=== PATIENT | female | born 1935 | race Caucasian/White ===

== ENCOUNTER 2017-08-26 16:36 | Inpatient (IN) | payer OTHER, MEDICARE ==
[~2017-08-26] VITALS: Ht 157.5 cm; Wt 70.1 kg
--- NOTE | 2017-08-26 16:50 | ED EYE COMPLAINT ---
History of Present Illness General Chief Complaint: Eye Problems Stated Complaint: "TROUBLE SEEING OUT OF LEFT EYE" Source: patient, family Exam Limitations: no limitations Vital Signs & Intake/Output Vital Signs & Intake/Output Vital Signs Date Time Temp Pulse Resp B/P B/P Pulse O2 O2 Flow FiO2 Mean Ox Delivery Rate 08/27 1419 98.2 72 18 136/64 95 Room Air 08/27 0841 74 134/68 08/27 0655 97.7 74 20 136/66 96 Room Air 08/27 0224 98.1 72 18 132/60 95 Room Air 08/27 0211 98.0 74 20 132/70 96 Room Air 08/27 0027 72 20 152/70 97 Room Air ED Intake and Output 08/27 0000 08/26 1200 Intake Total Output Total Balance Patient 150 lb Weight Weight Reported by Patient Measurement Method Allergies Coded Allergies: bee venom protein (honey bee) (Intermediate, SWELLING 08/26/17) Triage Nurses Notes Reviewed? yes Onset: Gradual Duration: minute(s): Timing: single episode today Injury Environment: home Severity: moderate Left Eye Associated Symptoms: blurred vision, decreased vision HPI: 82yo female with hx of HTN, hyperlipidemia presents to ED complaining of visual changes in left eye. Patient states that prior to arrival around 430PM she was cleaning her bathroom when she had visual changes in the left eye. She states vision in left eye became blurry and she lost part of her vision. She states she tried to read a word and felt as though she could see the beginning of the word however not the second half. When she closed her eyes she saw a bright light in the left eye. These visual symptoms were associated with lightheadedness. Patient has no history of similar symptoms in the past. Patient reports total duration of symptoms approximately 15 minutes. 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 Joseph at [place] [facility]. Patient's daughter called the patient's director electrical engineering who recommended she be seen and evaluated in the emergency department for TIA rule out. The patient denies headache, head trauma, chest pain, dyspnea, abdominal pain, syncope. (Priscilla DONALDSON,Pat Tello) Reconcile Medications Atorvastatin Calcium (Lipitor) 40 MG TABLET 1 TAB PO DAILY CHOL (Reported) Dorzolamide HCl/Timolol Maleat (Dorzolamide-Timolol Eye Drops) 22.3 MG-6.8 MG/ML DROPS 1 GTT OPH BID GLAUCOMA (Reported) Prednisolone Acetate 1 % DROPS.SUSP 1 GTT OPH 4 TIMES/DAY cataracts (Reported ) Valsartan (Diovan) 40 MG TABLET 1 TAB PO DAILY HTN (Reported) (Mary VELAZCO,Remigio Martinez) Past History Travel History Traveled to [place] past 21 day No Medical History Any Pertinent Medical History? see below for history Cardiovascular: hypertension, hyperlipidemia Surgical History Surgical History: cataract removal, corneal transplant, left eye Psychosocial History What is your primary language Telugu Family History Hx Contributory? No (Pat Matthew) Review of Systems Review of Systems Constitutional: Reports: no symptoms. Eyes: Reports: see HPI. Ear: Reports: no symptoms. Nose: Reports: no symptoms. Mouth: Reports: no symptoms. Throat: Reports: no symptoms. Respiratory: Reports: no symptoms. Cardiovascular: Reports: no symptoms. GI: Reports: no symptoms. Genitourinary: Reports: no symptoms. Musculoskeletal: Reports: no symptoms. Skin: Reports: no symptoms. Neurological/Psychological: Reports: see HPI. Hematologic/Endocrine: Reports: no symptoms. Immunologic/Allergic: Reports: no symptoms. All Other Systems: Reviewed and Negative (Pat Matthew) Physical Exam General Appearance: well developed/nourished, no apparent distress, alert, awake General Inspection: normal inspection Eyelid: normal inspection Conjunctiva/Sclera: normal inspection Cornea: normal inspection EOM: intact Pupil: irregular pupillary shape, surgical pupil Anterior Chamber: normal inspection General Inspection: normal inspection Eyelid: normal inspection Conjunctiva/Sclera: normal inspection Cornea: normal inspection EOM: intact Pupil: normal accommodation, normal pupil, PERRL Anterior Chamber: normal inspection Physical Exam Head: atraumatic, normal appearance Nose: normal inspection Mouth/Throat: normal mouth inspection, pharynx normal Neck: normal inspection, supple, full range of motion Cardiovascular/Respiratory: normal breath sounds, normal peripheral pulses, regular rate/rhythm, no respiratory distress Neurologic/Psych: awake, alert, oriented x 3, cloth sponger II-XII nml as tested Skin: intact, normal color, warm/dry (Pat Matthew) Progress Differential Diagnosis: detached retina, retinal art./v. occlusion, TIA, amarosis fuguax, macular degeneration Plan of Care: Orders Procedure Date/time Status Heart Healthy Diet 08/27 B Active THYROID STIMULATING HORMONE 08/27 0610 Complete PHOSPHORUS 08/27 0610 Complete MAGNESIUM 08/27 0610 Complete FREE T4 08/27 0610 Complete TROPONIN LEVEL 08/27 06 Complete CBC WITHOUT DIFFERENTIAL 08/27 06 Complete BASIC ELECTROLYTES PLUS BUN&CR 08/27 06 Complete EKG 08/27 06 Active Weight 08/27 0225 Active Vital Signs 08/27 224 Active Teach/Educate 08/27 224 Active Pain Treatment and Response 08/27 224 Active Nutritional Intake, Monitor 08/27 224 Active Isolation 08/27 224 Active Intake & Output 08/27 224 Active Patient Care Conference 08/27 224 Active Activity/Ambulation 08/27 224 Active Pathway - chart 08/27 012 Active Code Status 08/27 012 Active Patient Data 08/27 0111 Active XRY-PORTABLE CHEST XRAY 08/27 UNK Active PT Evaluate & Treat 08/27 UNK Active House Staff 08/27 UNK Active Lab Add-on Test 08/27 UNK Active VTE Mechanical Prophylaxis 08/27 UNK Active Vital Signs 08/27 UNK Active NIH Stroke Scale 08/27 UNK Active Activity/Ambulation 08/27 UNK Active Saline Lock 08/26 2353 Active Misc Message 08/26 2353 Active ED Holding Orders 08/26 235 Active Admit to inpatient 08/26 2353 Active Vital Signs 08/26 2353 Active Code Status 08/26 2353 Complete Add-on Test (ER Only) 08/26 2020 Active Intake & Output 08/26 1922 Active PARTIAL THROMBOPLASTIN TIME 08/26 1735 Complete PROTHROMBIN TIME 08/26 1735 Complete Current Medications Sig/Mika Start time Last Medication Dose Stop Time Status Admin Atorvastatin Calcium 40 MG 1700 08/27 1700 AC 08/27 (Lipitor) 1704 Aspirin 81 MG DAILY 08/27 0900 AC 08/27 (Aspirin) 0840 Dorzolamide HCl 1 GTT BID 08/27 0900 AC 08/27 (Trusopt 2% 10 ML) 0842 Losartan Potassium 12.5 MG DAILY 08/27 0900 AC 08/27 (Cozaar) 0841 Prednisolone 1 GTT 4 TIMES/DAY 08/27 09 AC 08/27 (Pred Forte) 1704 Timolol Maleate 1 GTT BID 08/27 0900 AC 05/26 (Timoptic) 0842 Laboratory Tests 08/27/17 0610: Anion Gap 10, Estimated GFR > 60, BUN/Creatinine Ratio 22.9, Phosphorus 5.1 H, Magnesium 1.9, Troponin I < 0.01, TSH 2.010, Free T4 1.06, CBC w Diff NO MAN DIFF REQ, RBC 4.46, MCV 92.2, MCH 31.1 H, MCHC 33.7, RDW 13.6, MPV 8.8, Gran % 48.2, Lymphocytes % 41.6, Monocytes % 7.8, Eosinophils % 2.0, Basophils % 0.4, Absolute Granulocytes 3.0, Absolute Lymphocytes 2.6, Absolute Monocytes 0.5, Absolute Eosinophils 0.1, Absolute Basophils 0 NIH stroke scale zero at time of physical exam. Patient passed swallow evaluation. Spoke with Dr. Redmond regarding this patient. He feels there is a strong possibility patient has suffered from a TIA based on her symptoms description. He recommends CTA head and neck now. He also recommends plavix rather than aspirin. Depending on patient comfort he recommends inpatient observation versus follow up as outpatient. Dr. Teran recommends inpatient observation for TIA work up. The patient agrees, she feels more comfortable staying in the hospital. Case management agree with observation. Patient requires telemetry monitoring, repeat EKGs/troponins, echocardiogram, neurology and cardiology consult. The patient was signed out to Dr. Witt pending CTA results and discussion with hospitalist. Diagnostic Imaging: Viewed by Me: CT Scan. Discussed w/RAD: CT Scan. Radiology Impression: PATIENT: SANJIV CHAVEZ PRESENT AGE : 82 PATIENT ACCOUNT NO: [id number] : 33 LOCATION: [facility] ORDERING PHYSICIAN: Pat DONALDSON SERVICE DATE: 08/26/172815 EXAM TYPE: CAT - CT HEAD WO IV CONTRAST EXAMINATION: CT HEAD WITHOUT CONTRAST CLINICAL INFORMATION: Visual changes in one eye, now resolved. Rule out ICH. COMPARISON: Head CT 05/18/2012. TECHNIQUE: Contiguous axial imaging was performed from the skull base to vertex without intravenous administration of contrast. DLP: 536 mGy-cm. FINDINGS: There is no intracranial hemorrhage, large infarction, or mass lesion. There is no extra-axial collection. There is moderate scattered hypoattenuation in the bilateral cerebral white matter, which is nonspecific but likely reflects small vessel disease. There is mild diffuse brain parenchymal volume loss with prominence of the ventricles and sulci. No evidence of hydrocephalus. The paranasal sinuses are clear. The mastoids and middle ear cavities are clear. IMPRESSION: - No acute intracranial abnormality. - Moderate small vessel ischemic changes. DICTATED BY: Riley James MD DATE/TIME DICTATED:08/26/171821 DATASTAGE ARCHITECT:JANELLE DATE/TIME TRANSCRIBED:1821 CONFIDENTIAL, DO NOT COPY WITHOUT APPROPRIATE AUTHORIZATION. < Electronically signed in Other Vendor System> SIGNED BY: Riley James MD 08/26/171828 Initial ED EKG: sinus rhythm @91bpm, ventricular bigeminy, IVCD Hand-Off Endorsed To: Figueroa Teran MD Endorsed Time: 2253 Pending: CT (Priscilla DONALDSON,Pat Tello) Radiology Impression: PATIENT: SANJIV CHAVEZ PRESENT AGE : 82 PATIENT ACCOUNT NO: [id number] : 33 LOCATION: [facility] ORDERING PHYSICIAN: Pat DONALDSON SERVICE DATE: 08/26/17 EXAM TYPE: CAT - CT HEAD ANGIOGRAM EXAMINATION: CT ANGIOGRAM HEAD AND NECK CLINICAL INFORMATION: TIA. COMPARISON: CT head earlier today. TECHNIQUE: Patient had a noncontrast CT of the head earlier today. This exam was performed by injecting intravenous contrast, 95 mL of Optiray 320. Helical imaging was performed in the axial plane from the mediastinum to the skull vertex. The data was processed at the echocardiography radiology technologist's workstation for generation of MIP sequences. (No 3-D volume rendered reformatted images were generated from an off-line workstation.) DLP: 897.72 mGy-cm FINDINGS: HEAD: No intracranial mass, intercerebral edema, hemorrhage, or midline shift is evident. Age-related atrophy with moderate hypodensity the periventricular white matter chronic small vessel ischemic disease. No abnormal enhancing lesion postcontrast. No extra-axial collections are appreciated. The paranasal sinuses are well aerated and clear. SOFT TISSUES AND LUNG APICES: No overt abnormality is appreciated. NECK CTA: The aortic arch has a classic configuration and the major arch vessel origins are non-stenotic. The vertebral arteries are co-dominant and both vertebral origins are widely patent. Both common carotid arteries are normal in course and caliber. There is a small calcification at the origin of the right internal carotid artery origin but this does not cause significant stenosis. Internal carotid artery is widely patent. No calcification of the left internal carotid artery origin and no stenosis. The internal carotid artery is widely patent. CRANIAL CTA: There is normal opacification of the major intracranial vessels. No acute proximal large vessel occlusion, focal flow-limiting stenosis, or saccular intracranial aneurysm is identified. No abnormal parenchymal enhancement or regional oligemia is visualized. IMPRESSION: Normal CTA of the head and neck. DICTATED BY: Neymar Castillo MD DATE/TIME DICTATED:08/26/172304 DATASTAGE ARCHITECT:JANELLE DATE/ TIME TRANSCRIBED:08/26/172304 CONFIDENTIAL, DO NOT COPY WITHOUT APPROPRIATE AUTHORIZATION. <Electronically signed in Other Vendor System> SIGNED BY: Neymar Castillo MD 08/26/17 8703 (Jeffry VELAZCO,Figueroa Armstrong) Departure Departure Disposition: STILL A PATIENT Condition: Stable Clinical Impression Primary Impression: TIA (transient ischemic attack) Qualifiers: Transient cerebral ischemia type: unspecified Qualified Code: G45.9 - Transient cerebral ischemic attack, unspecified Referrals: Neymar Kirk MD (PCP/Family) Departure Forms: Customer Survey General Discharge Information Observation Note Physician Advisor Notified: JERRICA RODRIGUEZ DO Place Patient In: Non-ED OBS Care Area Rationale for Observation: My rational for observation is as follows [likely TIA requiring telemetry observation, frequent neuro checks, neurology consult, cardiology consult, medication adjustments, premature discharge medically unsafe]. (Priscilla DONALDSON,Pat Tello) PA/HEAD OF INSIGHT Co-Sign Statement Statement: ED Attending supervision documentation- [X] I saw and evaluated the patient. I have also reviewed all the pertinent lab results and diagnostic results. I agree with the findings and the plan of care as documented in the PA's/HEAD OF INSIGHT's documentation. [X] I have reviewed the ED Record and agree with the PA's/HEAD OF INSIGHT's documentation. [] Additions or exceptions (if any) to the PAs/HEAD OF INSIGHT's note and plan are summarized below: [Patient presents with episodic loss of vision to the periphery of her eye. Patient states that when she then will close her eye that she would see a bright light in that area. Symptoms have now resolved. Patient has no other symptoms. We'll follow labs and CAT scan and discussed with neurology.] (Mary VELAZCO,Remigio Martinez) Admission Note Spoke With: Freddy Mckinney MD Documentation of Exam: Documentation of any treatments & extenuating circumstances including Concerns Regarding Discharge (functional status, medication knowledge or non-compliance, living conditions, etc.) that warrant an admission rather than observation: pt with tia. Observation Note Spoke With: Freddy Mckinney MD PA/HEAD OF INSIGHT Co-Sign Statement Statement: ED Attending supervision documentation- [x] I saw and evaluated the patient. I have also reviewed all the pertinent lab results and diagnostic results. I agree with the findings and the plan of care as documented in the PA's/HEAD OF INSIGHT's documentation. 08/26/17, 20:37... pt with left iris changes consistent with post-cataract surgery. no visual field defects. pt merits admission for tia evaluation. [] I have reviewed the ED Record and agree with the PA's/HEAD OF INSIGHT's documentation. [] Additions or exceptions (if any) to the PAs/HEAD OF INSIGHT's note and plan are summarized below: [] (Jeffry VELAZCO,Figueroa Armstrong)
[2017-08-26 17:41] LABS: ABSOLUTE BASOPHIL COUNT 0 /CUMM (0.0-0.2); ABSOLUTE EOSINOPHIL COUNT 0.2 /CUMM (0.0-0.7); ABSOLUTE GRANULOCYTE CT 4.3 /CUMM (1.4-6.5); ABSOLUTE LYMPH COUNT 2.5 /CUMM (1.2-3.4); ABSOLUTE MONOCYTE COUNT 0.6 /CUMM (0.10-0.60); BASOPHIL % 0.3 % (0.0-2.0); GRANULOCYTE % 56.4 % (42.2-75.2); MEAN CORPUSCULAR HGB 30.8 PG (27.0-31.0); MEAN CORPUSCULAR HGB CONC 33.8 G/DL (33.0-37.0); PLATELET COUNT 249 /CUMM (130-400); RBC DISTRIBUTION WIDTH 13.7 % (11.5-14.5); RED BLOOD CELL CT 4.83 /CUMM (4.20-5.40); WHITE BLOOD CELL COUNT 7.7 /CUMM (4.8-10.8)
--- NOTE | 2017-08-26 18:29 | CT SCAN REPORT ---
EXAMINATION: CT HEAD WITHOUT CONTRAST CLINICAL INFORMATION: Visual changes in one eye, now resolved. Rule out ICH. COMPARISON: Head CT 05/18/2012. TECHNIQUE: Contiguous axial imaging was performed from the skull base to vertex without intravenous administration of contrast. DLP: 536 mGy-cm. FINDINGS: There is no intracranial hemorrhage, large infarction, or mass lesion. There is no extra-axial collection. There is moderate scattered hypoattenuation in the bilateral cerebral white matter, which is nonspecific but likely reflects small vessel disease. There is mild diffuse brain parenchymal volume loss with prominence of the ventricles and sulci. No evidence of hydrocephalus. The paranasal sinuses are clear. The mastoids and middle ear cavities are clear. IMPRESSION: - No acute intracranial abnormality. - Moderate small vessel ischemic changes.
[2017-08-26] MEDS ORDERED: LIPITOR40 M1 PO (19:25)
[2017-08-26] MEDS ORDERED: DIOVAN40 MG PO (19:26)
[2017-08-26] MEDS ORDERED: PREDNISONE5 M1 PO (19:26)
[2017-08-26] MEDS ORDERED: DORZOLAMIDE-TIM10 ML OPH (20:45)
[2017-08-26 20:50] LABS: PT 11.3 SEC (9.4-12.5); PTT 29 SEC (25-37)
--- NOTE | 2017-08-26 23:20 | CT SCAN REPORT ---
EXAMINATION: CT ANGIOGRAM HEAD AND NECK CLINICAL INFORMATION: TIA. COMPARISON: CT head earlier today. TECHNIQUE: Patient had a noncontrast CT of the head earlier today. This exam was performed by injecting intravenous contrast, 95 mL of Optiray 320. Helical imaging was performed in the axial plane from the mediastinum to the skull vertex. The data was processed at the electrical design technologist's workstation for generation of MIP sequences. (No 3-D volume rendered reformatted images were generated from an off-line workstation.) DLP: 897.72 mGy-cm FINDINGS: HEAD: No intracranial mass, intercerebral edema, hemorrhage, or midline shift is evident. Age-related atrophy with moderate hypodensity the periventricular white matter chronic small vessel ischemic disease. No abnormal enhancing lesion postcontrast. No extra-axial collections are appreciated. The paranasal sinuses are well aerated and clear. SOFT TISSUES AND LUNG APICES: No overt abnormality is appreciated. NECK CTA: The aortic arch has a classic configuration and the major arch vessel origins are non-stenotic. The vertebral arteries are co-dominant and both vertebral origins are widely patent. Both common carotid arteries are normal in course and caliber. There is a small calcification at the origin of the right internal carotid artery origin but this does not cause significant stenosis. Internal carotid artery is widely patent. No calcification of the left internal carotid artery origin and no stenosis. The internal carotid artery is widely patent. CRANIAL CTA: There is normal opacification of the major intracranial vessels. No acute proximal large vessel occlusion, focal flow-limiting stenosis, or saccular intracranial aneurysm is identified. No abnormal parenchymal enhancement or regional oligemia is visualized. IMPRESSION: Normal CTA of the head and neck.
--- NOTE | 2017-08-27 00:30 | History & Physical ---
Leonard VELAZCO,Remigio 08/27/17 0029: General Information and HPI MD Statement: I have seen and personally examined SANJIV CHAVEZ and documented this H&P. The patient is a 82 year old F who presented with a patient stated chief complaint of [transient visual changes left eye]. Source of Information: patient, family, old records Exam Limitations: poor historian History of Present Illness: Patient is an 82-year-old female with a PMH significant for hypertension, hyperlipidemia, cataracts with multiple surgeries to the left eye, who presented to the [facility] ED after suffering a transient episode of blurred vision in her left eye. Patient describes a sudden onset of blurry vision in the nasal field of her left eye, she is unable to however she did not have a complete blackout of her vision. Symptoms lasted approximately 15 minutes. She contacted her hand i tube bender Dr. Maldonado at [facility] who recommended coming into the ED to rule out TIA. By the time she presented to the ED her symptoms had completely resolved, she denied any associated chest pain, palpitations, lightheadedness, dizziness, headache, numbness, tingling, weakness, slurred speech, syncope. Allergies/Medications Allergies: Coded Allergies: bee venom protein (honey bee) (Intermediate, SWELLING 08/26/17) Past History Travel History Traveled to [place] past 21 day No Medical History Neurological: NONE EENT: cataracts Cardiovascular: hypertension, hyperlipidemia Respiratory: NONE Gastrointestinal: NONE Hepatic: NONE Renal: NONE Musculoskeletal: osteoarthritis, R ARM FX Psychiatric: NONE Endocrine: NONE Blood Disorders: NONE Cancer(s): NONE HUNTING GUIDE/Reproductive: NONE Surgical History Surgical History: cataract removal, corneal transplant, left eye Past Family/Social History Family History Relations & Conditions if any Relation not specified for: *No pertinent family history Psychosocial History Where do you live? Home Who Do You Live With? self Services at Home: None Primary Language: Martiniquais Smoking Status: Never Smoked ETOH Use: occasional use Illicit Drug Use: denies illicit drug use Functional Ability ADLs Independent: dressing, eating, toileting, bathing. Ambulation: independent IADLs Independent: shopping, housework, finances, food prep, telephone, transportation , medication admin. Review of Systems Review of Systems Constitutional: Denies: chills, diaphoresis, fever. EENTM: Reports: blurred vision. Denies: double vision, visual changes, eye pain. Cardiovascular: Denies: chest pain, palpitations, syncope. Respiratory: Denies: short of breath. GI: Reports: see HPI. Genitourinary: Reports: see HPI. Musculoskeletal: Reports: see HPI. Skin: Reports: see HPI. Neurological/Psychological: Denies: confusion, headache, numbness, paresthesia, tingling, weakness. Exam & Diagnostic Data Last 24 Hrs of Vital Signs/I&O Vital Signs Date Time Temp Pulse Resp B/P B/P Pulse O2 O2 Flow FiO2 Mean Ox Delivery Rate 08/27 0224 98.1 72 18 132/60 95 Room Air 08/27 0211 98.0 74 20 132/70 96 Room Air 08/27 0027 72 20 152/70 97 Room Air 08/26 1923 66 20 158/68 97 08/26 1745 97 Room Air Room Air 08/26 1656 98.4 46 20 161/73 97 Room Air Intake & Output 08/27 0800 08/27 0000 08/26 1600 Intake Total Output Total Balance Patient 154 lb 150 lb Weight Weight Bed scale Reported by Patient Measurement Method Physical Exam General Appearance Alert, Oriented X3, Cooperative, No Acute Distress Skin Temp/Moisture Exam: Warm/Dry Sepsis Skin Exam (color): Normal for Ethnicity HEENT L pupil irregular Neck No JVD, +2 Carotid Pulse wo Bruit Cardiovascular Regular Rate, Normal S1, Normal S2 Lungs Clear to Auscultation, Normal Air Movement Abdomen Normal Bowel Sounds, Soft, No Tenderness Neurological Normal Speech, Strength at 5/5 X4 Ext, Normal Tone, Sensation Intact, Reflexes 2+, L afferent pupillary defect, with R eye consensual pupillary response to light shined in L eye, but no L eye pupillary reaction to light Extremities No Clubbing, No Cyanosis, No Edema Last 24 Hrs of Labs/Ambrose: Laboratory Tests 08/26/17 1735: Anion Gap 14, Estimated GFR > 60, BUN/Creatinine Ratio 23.8, Glucose 108 H, Calcium 9.6, Total Bilirubin 0.6, AST 19, ALT 32, Alkaline Phosphatase 77, Troponin I < 0.01, Total Protein 7.0, Albumin 4.1, Globulin 2.9, Albumin/ Globulin Ratio 1.4, PT 11.3, INR 1.04, APTT 29, CBC w Diff NO MAN DIFF REQ, RBC 4.83, MCV 91.0, MCH 30.8, MCHC 33.8, RDW 13.7, MPV 8.0, Gran % 56.4, Lymphocytes % 33.3, Monocytes % 8.0, Eosinophils % 2.0, Basophils % 0.3, Absolute Granulocytes 4.3, Absolute Lymphocytes 2.5, Absolute Monocytes 0.6, Absolute Eosinophils 0.2, Absolute Basophils 0 Diagnostic Data EKG Results Ventricular bigeminy, HR 91, QTc [address] head There is no intracranial hemorrhage, large infarction, or mass lesion. There is no extra-axial collection. There is moderate scattered hypoattenuation in the bilateral cerebral white matter, which is nonspecific but likely reflects small vessel disease. There is mild diffuse brain parenchymal volume loss with prominence of the ventricles and sulci. No evidence of hydrocephalus. The paranasal sinuses are clear. The mastoids and middle ear cavities are clear. IMPRESSION: - No acute intracranial abnormality. - Moderate small vessel ischemic changes. CTA head and neck HEAD: No intracranial mass, intercerebral edema, hemorrhage, or midline shift is evident. Age-related atrophy with moderate hypodensity the periventricular white matter chronic small vessel ischemic disease. No abnormal enhancing lesion postcontrast. No extra-axial collections are appreciated. The paranasal sinuses are well aerated and clear. SOFT TISSUES AND LUNG APICES: No overt abnormality is appreciated. NECK CTA: The aortic arch has a classic configuration and the major arch vessel origins are non-stenotic. The vertebral arteries are co-dominant and both vertebral origins are widely patent. Both common carotid arteries are normal in course and caliber. There is a small calcification at the origin of the right internal carotid artery origin but this does not cause significant stenosis. Internal carotid artery is widely patent. No calcification of the left internal carotid artery origin and no stenosis. The internal carotid artery is widely patent. CRANIAL CTA: There is normal opacification of the major intracranial vessels. No acute proximal large vessel occlusion, focal flow-limiting stenosis, or saccular intracranial aneurysm is identified. No abnormal parenchymal enhancement or regional oligemia is visualized. IMPRESSION: Normal CTA of the head and neck. Assessment/Plan Assessment: Patient is an 82-year-old female with a PMH significant for hypertension, hyperlipidemia, cataracts with multiple surgeries to the left eye, who presented to the [facility] ED after suffering a transient episode of blurred vision in her left eye. vitals on presentation: T 98.4, P 46 (increased to 66), RR 20, BP 161/73, pulse ox 97% on RA Labs: CVC, BEP, coags unremarkable, troponin <0.01 CT head showed no hemorrhage, moderate small vessel ischemic changes, CTA head and neck showed no filling defects Problem list #Transient episode of visual field defect with afferent left-sided pupillary defect, this is in the setting of multiple surgeries including cataract removal and corneal transplant, this could possibly represent a TIA or primary ophthalmologic process #Chronic medical problems including HTN, HLD Plan -Admit to telemetry -Continuous telemetry monitoring -Start aspirin -Continue statin -Neurology consult placed with on-call neurology is answering service -Repeat troponin and EKG in a.m. -Echocardiogram -PT and OT consult -Continue home medications Diet: Heart healthy DVT prophylaxis: Lovenox, Alps CODE STATUS: Full code As Ranked By This Provider Problem List: 1. TIA (transient ischemic attack) Qualifiers Transient cerebral ischemia type: unspecified Qualified Code: G45.9 - Transient cerebral ischemic attack, unspecified Core Measures/Misc (12/19) Acute Coronary Syndrome ACS Diagnosis: No Congestive Heart Failure Congestive Heart Failure Diagnosis No Cerebrovascular Accident CVA/TIA Diagnosis: Yes (possible TIA) NIH Stroke Scale: Total 0 Date Last Known Well: 08/26/17 Time Last Known Well: 1500 Symptom Start Date: 08/26/17 Symptom Start Time: 1500 Reason tPA not ordered Medical Contraindication Swallow Evaluation Pass Current/Past Hx AFib/AFlutter No VTE (View Protocol) VTE Risk Factors Age>40 No Mechanical VTE Prophylaxis d/t N/A MechProphylax Ordered No VTE Pharm Prophylaxis d/t NA PharmProphylax ordered Sepsis (View protocol) Sepsis Present: No If YES complete Sepsis Event Note If YES complete Sepsis Event Note Good Metzger 08/27/17 0255: Core Measures/Misc (12/19) Sepsis (View protocol) If YES complete Sepsis Event Note If YES complete Sepsis Event Note Resident Review Statement Resident Statement: examined this patient, discussed with intern architect, agreed with intern architect, discussed with family, reviewed EMR data (avail), discussed with nursing , discussed with case mgmt, reviewed images, amended to note Other Findings: 82 year old with history of cataract surgery, corneal transplant about 2 years ago, hypertension, hyperlipidemia presenting to the ED with sudden onset visual change in her left eye. Head CT with no intracranial abnormality, head and neck CTA unremarkable. Her presentation is suspicious for amaurosis fugax, but with isolated loss of nasal site of the left eye vision vision not quite compatible. Nonetheless, high ABCD 2 score warrants admission and close monitoring on the telemetry floor. Start aspirin, continue atorvastatin. Neurology evaluation. Highly suspect that this is related to her previous iris manipulation. 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 This patient will benefit from a formal ophthalmology evaluation, pending neurology clearance. She does have afferent pupillary defect in addition to a fixed, semi-dilated left pupil. Vision intact. No ophthalmoplegia or paresis. Continue her home eyedrops - Dorzolamide and Timolol. Echocardiogram. PT/OT. Swallow evaluation at bedside performed. Start diet. Full code Lovenox for DVT prophylaxis. Isael VELAZCO, [facility] 08/27/17 0422: General Information and HPI Allergies/Medications Home Med list Atorvastatin Calcium (Lipitor) 40 MG TABLET 1 TAB PO DAILY CHOL (Reported) Dorzolamide HCl/Timolol Maleat (Dorzolamide-Timolol Eye Drops) 22.3 MG-6.8 MG/ML DROPS 1 GTT OPH BID GLAUCOMA (Reported) Prednisolone Acetate 1 % DROPS.SUSP 1 GTT OPH 4 TIMES/DAY cataracts (Reported ) Valsartan (Diovan) 40 MG TABLET 1 TAB PO DAILY HTN (Reported) Core Measures/Misc (12/19) Sepsis (View protocol) If YES complete Sepsis Event Note If YES complete Sepsis Event Note Attending MD Review Statement Attending Statement Attending MD Statement: examined this patient, discuss w/resident/PA/ENERGY EFFICIENCY FINANCE MANAGER, agreed w/resident/PA/ENERGY EFFICIENCY FINANCE MANAGER, discussed with family, reviewed images, amended to note Attending Assessment/Plan: 82 yo F with h/o HTN, HLD, previous b/l cataract surgery followed left corneal transplant 2 yrs ago, who is being followed by Dr. Joseph at [facility], is here for evaluation of sudden onset left eye visual field defect. Patient's daughter called her hand i tube bender who suggested to bring patient to ER for TIA evaluation. Around 3 pm patient felt a sudden inability to see (blurring) on the nasal half field of the left eye. When she looked at the paper, the words disappeared. When she closed her eye, she could see something like a "second eye" only in black and white. There was no complete loss of vision. This episode lasted for 15 mintues, during which she had no slurring of speech, no hemiparesis or facial droop. No prior TIA or stroke. She did have lightheadedness and felt off balance. She denies chest pain, dyspnea or palpitations. Her visual symptoms have resolved and back to baseline. 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 Vitals stable. Neuro exam nonfocal. Right pupil round and RTL. Left pupil distorted, with afferent defect. Labs unremarkable. EKG: sinus rhythm, atypical RBBB, ventricular bigeminy, Qtc 453. CT head no acute abnormality, moderate small vessel ischemic changes. CTA head/ neck: normal. Assessment and plan: 1. Transient partial visual field deficit of left eye resolved 2. Rule out TIA 3. Essential hypertension 4. Hyperlipidemia - Admit to Telemetry - Neurochecks Q4 - Check orthostats - Fall precautions - Aspirin 81 mg daily and statin - Check lipid panel, TSH, free T4, A1c - Obtain echo and Neuro consult - No need for carotid doppler as CTA neck was normal - Repeat EKG and troponin - PT eval - Outpatient ophthal follow up once cleared by Neurology DVT ppx Juan Pablo. Full code.
[2017-08-27 02:24] VITALS: BP 132/60
--- NOTE | 2017-08-27 04:23 | Admission Certification ---
Admission Certification Certification Statement - As attending physician, I certify that at the time of - admission, based on clinical presentation, severity of - symptoms, need for further diagnostic testing and - therapeutic interventions, and risk of adverse outcomes - without in-hospital treatment, in my clinical assessment, - this patient requires an acute hospital stay for a minimum - of two nights or longer. I have also considered psychsocial - factors such as support system, advanced age, financial - issues, cognitive issues, and failed out-patient treatments, - past re-admission history, safety of patient, and lack of - compliance as applicable. Specific rationale supporting this admission is: Visual field deficit that has resolved, concerning for a TIA.
[2017-08-27] MEDS ORDERED: PREDNISOLONE ACE5 ML OPH (04:50)
[2017-08-27 06:55] VITALS: BP 136/66
[2017-08-27 08:42] LABS: ABSOLUTE BASOPHIL COUNT 0 /CUMM (0.0-0.2); ABSOLUTE EOSINOPHIL COUNT 0.1 /CUMM (0.0-0.7); ABSOLUTE LYMPH COUNT 2.6 /CUMM (1.2-3.4); ABSOLUTE MONOCYTE COUNT 0.5 /CUMM (0.10-0.60); BASOPHIL % 0.4 % (0.0-2.0); GRANULOCYTE % 48.2 % (42.2-75.2); HEMATOCRIT 41.1 % (37-47); MEAN CORPUSCULAR HGB 31.1 PG (27.0-31.0); MEAN CORPUSCULAR HGB CONC 33.7 G/DL (33.0-37.0); MEAN CORPUSCULAR VOLUME 92.2 FL (81.0-99.0); MEAN PLATELET VOLUME 8.8 FL (7.4-10.4); PLATELET COUNT 224 /CUMM (130-400); RBC DISTRIBUTION WIDTH 13.6 % (11.5-14.5); RED BLOOD CELL CT 4.46 /CUMM (4.20-5.40); WHITE BLOOD CELL COUNT 6.3 /CUMM (4.8-10.8)
--- NOTE | 2017-08-27 11:16 | Cons- Neurology ---
General Information and HPI Consulting Request Date of Consult: 08/27/17 Requested By: Isael VELAZCO,Tenzin Reason for Consult: Transient visual change. Source of Information: patient, family, staff Exam Limitations: no limitations History of Present Illness: This is a very pleasant 82-year-old woman with hypertension and hypercholesteremia, who is usually in good health, who came into the hospital after developing 15 minutes of transient visual obscurations and blurry vision. It to ER staff that she was trying to read words and the words were cut off on the right side of her visual field. Denies complete obscuration but says that the words were jumpy and very blurry on that side. Subsided 15 minutes later. Denies any dropping curtain effect. Denies any focal symptoms and any point in time. He constitutional symptoms. He is now back to her baseline. Allergies/Medications Allergies: Coded Allergies: bee venom protein (honey bee) (Intermediate, SWELLING 08/26/17) Home Med List: Atorvastatin Calcium (Lipitor) 40 MG TABLET 1 TAB PO DAILY CHOL (Reported) Dorzolamide HCl/Timolol Maleat (Dorzolamide-Timolol Eye Drops) 22.3 MG-6.8 MG/ML DROPS 1 GTT OPH BID GLAUCOMA (Reported) Prednisolone Acetate 1 % DROPS.SUSP 1 GTT OPH 4 TIMES/DAY cataracts (Reported ) Valsartan (Diovan) 40 MG TABLET 1 TAB PO DAILY HTN (Reported) Current Medications: Current Medications Sig/Mika Start time Last Medication Dose Route Stop Time Status Admin Aspirin 81 MG DAILY 08/27 09 AC 08/27 PO 0840 Atorvastatin Calcium 40 MG 1700 08/27 1700 AC PO Clopidogrel Bisulfate 75 MG ONCE ONE 08/26 2230 DC 08/26 PO 08/26 2231 2314 Dorzolamide HCl 1 GTT BID 08/27 0900 AC 08/27 OPH 0842 Losartan Potassium 12.5 MG DAILY 08/27 09 AC 08/27 PO 0841 Ondansetron HCl 4 MG ONCE ONE 08/26 2129 DC 08/26 IV 08/261 Ondansetron HCl 0 .STK-MED ONE 08/26 2124 DC .ROUTE Prednisolone 1 GTT 4 TIMES/DAY 08/27 09 AC 08/27 OPH 0842 Timolol Maleate 1 GTT BID 08/27 09 AC 08/27 OPH 0842 Review of Systems Review of Systems: The 10 point review of system was reviewed and is negative other than the HPI. Past History Travel History Traveled to [place] past 21 day No Medical History Blood Transfusion Hx: No Neurological: NONE EENT: cataracts Cardiovascular: hypertension, hyperlipidemia Respiratory: NONE Gastrointestinal: NONE Hepatic: NONE Renal: NONE Musculoskeletal: osteoarthritis, R ARM FX Psychiatric: NONE Endocrine: NONE Blood Disorders: NONE Cancer(s): NONE SIGN MAKER/Reproductive: NONE Surgical History Surgical History: cataract removal, corneal transplant, left eye Family History Relations & Conditions If Any: Relation not specified for: *No pertinent family history Psychosocial History Where Do You Live? Home Who Do You Live With? self Services at Home: None Primary Language: Syriac Smoking Status: Never Smoked ETOH Use: occasional use Illicit Drug Use: denies illicit drug use Functional Ability ADLs Independent: dressing, eating, toileting, bathing. Ambulation: independent IADLs Independent: shopping, housework, finances, food prep, telephone, transportation , medication admin. Exam & Diagnostic Data Vital Signs and I&O Vital Signs Date Time Temp Pulse Resp B/P B/P Pulse O2 O2 Flow FiO2 Mean Ox Delivery Rate 08/27 0841 74 134/68 08/27 0655 97.7 74 20 136/66 96 Room Air 08/27 0224 98.1 72 18 132/60 95 Room Air 08/27 0211 98.0 74 20 132/70 96 Room Air 08/27 0027 72 20 152/70 97 Room Air 08/26 1923 66 20 158/68 97 08/26 1745 97 Room Air Room Air 08/26 1656 98.4 46 20 161/73 97 Room Air Intake & Output 08/27 1600 08/27 0800 08/27 0000 Intake Total Output Total Balance Patient 154 lb 150 lb Weight Weight Bed scale Reported by Patient Measurement Method Physical Exam: General: The patient is in no distress. Pleasant and cooperative. MSE: Alert and oriented 3. Good attention and concentration. Good short-term memory and fund of knowledge reflected through our conversation. Language is fluent with good comprehension and repetition. Cardiovascular: S1 and S2 are normal, regular rate and rhythm, and normal pedal pulses. Vision: Visual rhoades are intact. Neurological: Extra ocular movements intact, YONIS, face is symmetric, tongue midline, uvula raises equally in the midline, V1-V3 sensation to touch is intact and equal bilaterallty, sternocleidomastoid and trapezius are strong on both sides, muscles of mastication are strong. No dysarthria noted. Motor exam reveals no abnormality of strength. Power is 5-5 throughout the distribution distally and proximally. Sensory exam did not reveal any deficits to touch, temperature, vibration and proprioception. Reflexes are symmetric bilaterally. Cerebellar exam does not reveal any dysmetria. Rapid alternating movements are intact bilaterally. Gait is steady with normal base. Last 48 Hours of Lab Results: Laboratory Tests 08/27 08/26 0610 1735 Chemistry Sodium (137 - 145 mmol/L) 142 143 Potassium (3.5 - 5.1 mmol/L) 4.5 4.6 Chloride (98 - 107 mmol/L) 105 105 Carbon Dioxide (22 - 30 mmol/L) 27 24 Anion Gap (5 - 16) 10 14 BUN (7 - 17 mg/dL) 16 19 H Creatinine (0.5 - 1.0 mg/dL) 0.7 0.8 Estimated GFR (>60 ml/min) > 60 > 60 BUN/Creatinine Ratio (7 - 25 %) 22.9 23.8 Glucose (65 - 99 mg/dL) 108 H Calcium (8.4 - 10.2 mg/dL) 9.6 Total Bilirubin (0.2 - 1.3 mg/dL) 0.6 AST (14 - 36 U/L) 19 ALT (9 - 52 U/L) 32 Alkaline Phosphatase (<127 U/L) 77 Troponin I (< 0.11 ng/ml) < 0.01 < 0.01 Total Protein (6.3 - 8.2 g/dL) 7.0 Albumin (3.5 - 5.0 g/dL) 4.1 Globulin (1.9 - 4.2 gm/dL) 2.9 Albumin/Globulin Ratio (1.1 - 2.2 %) 1.4 Coagulation PT (9.4 - 12.5 SEC) 11.3 INR (0.90 - 1.19) 1.04 APTT (25 - 37 SEC) 29 Hematology CBC w Diff NO MAN DIFF REQ NO MAN DIFF REQ WBC (4.8 - 10.8 /CUMM) 6.3 7.7 RBC (4.20 - 5.40 /CUMM) 4.46 4.83 Hgb (12.0 - 16.0 G/DL) 13.9 14.9 Hct (37 - 47 %) 41.1 44.0 MCV (81.0 - 99.0 FL) 92.2 91.0 MCH (27.0 - 31.0 PG) 31.1 H 30.8 MCHC (33.0 - 37.0 G/DL) 33.7 33.8 RDW (11.5 - 14.5 %) 13.6 13.7 Plt Count (130 - 400 /CUMM) 224 249 MPV (7.4 - 10.4 FL) 8.8 8.0 Gran % (42.2 - 75.2 %) 48.2 56.4 Lymphocytes % (20.5 - 51.1 %) 41.6 33.3 Monocytes % (1.7 - 9.3 %) 7.8 8.0 Eosinophils % (0 - 5 %) 2.0 2.0 Basophils % (0.0 - 2.0 %) 0.4 0.3 Absolute Granulocytes (1.4 - 6.5 /CUMM) 3.0 4.3 Absolute Lymphocytes (1.2 - 3.4 /CUMM) 2.6 2.5 Absolute Monocytes (0.10 - 0.60 /CUMM) 0.5 0.6 Absolute Eosinophils (0.0 - 0.7 /CUMM) 0.1 0.2 Absolute Basophils (0.0 - 0.2 /CUMM) 0 0 Imaging/Other Studies: FINDINGS: There is no intracranial hemorrhage, large infarction, or mass lesion. There is no extra-axial collection. There is moderate scattered hypoattenuation in the bilateral cerebral white matter, which is nonspecific but likely reflects small vessel disease. There is mild diffuse brain parenchymal volume loss with prominence of the ventricles and sulci. No evidence of hydrocephalus. The paranasal sinuses are clear. The mastoids and middle ear cavities are clear. IMPRESSION: - No acute intracranial abnormality. - Moderate small vessel ischemic changes. IMPRESSION: Normal CTA of the head and neck. 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 As never had migraines before. Recommendations: 1. Placed on Plavix 75 mg daily there is no need for extra aspirin. Please stop aspirin. 2. Agree with atorvastatin 40 and losartan. Blood pressure is high can increase losartan further. 3. And otherwise be discharged home as there is nothing else that needs to be done at this point, After getting a cardiology on sulfa what sounds like sick sinus syndrome. Knowledge otherwise signing off. Consult Acknowledgment - Thank you for your consult request.
--- NOTE | 2017-08-27 11:49 | Patient Discharge Instructions ---
Discharge Instructions General Discharge Information You were seen/treated for: TIA Special Instructions: Please follow up with your PCP, a dietary aide cook and neurologist within 1 week after discharge. Diet Continue normal diet: Yes Activity Full Activity/No Limits: Yes Acute Coronary Syndrome Inclusion Criteria At DC or during hospital stay patient has or had the following: ACS DIAGNOSIS No Discharge Core Measures Meds if any: Prescribed or Continued at Discharge Meds if any: NOT Prescribed or Continued at Discharge Congestive Heart Failure Inclusion Criteria At DC or during hospital stay patient has or had the following: CHF DIAGNOSIS No Discharge Core Measures Meds if any: Prescribed or Continued at Discharge Meds if any: NOT Prescribed or Continued at Discharge Cerebrovascular accident Inclusion Criteria At DC or during hospital stay patient has or had the following: CVA/TIA Diagnosis Yes (possible TIA) Discharge Core Measures Meds if any: Prescribed or Continued at Discharge Antithrombotic Yes Statin (required if LDL =>70) Yes Meds if any: NOT Prescribed or Continued at Discharge Venous thromboembolism Inclusion Criteria VTE Diagnosis No VTE Type NONE VTE Confirmed by (Test) NONE Discharge Core Measures - Per Current guidelines, there needs to be overlap - treatment for the first 5 days of Warfarin therapy. - If discharged on Warfarin prior to 5 days of - overlap therapy, the patient will need to be - assessed for post discharge needs including - *Post discharge parental anticoagulation - *Warfarin and/or parental anticoagulation education - *Follow up date to check INR post discharge At least 5 days overlap therapy as Inpatient No Meds if any: Prescribed or Continued at Discharge Note: Overlap Therapy is Warfarin and Anticoagulant Meds if any: NOT Prescribed or Continued at Discharge
[2017-08-27 14:19] VITALS: BP 136/64
--- NOTE | 2017-08-27 14:45 | PN- Att Addend ---
Attending Addendum Attending Brief Note 82-year-old female with past medical history significant for hypertension, hyperlipidemia, status post bilateral cataract surgery with left corneal transplant and who follows up with Dr. Joseph at [facility] comes in for evaluation of a sudden onset of left eye visual field defect. Her working diagnosis is TIA as her symptoms resolve in 15 minutes. Her initial neuro exam was nonfocal. 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 Continue the patient on Plavix 75 mg and discontinue aspirin. Continue with losartan and atorvastatin 40 mg. Cardiology consult pending. We'll continue to monitor, neurochecks, DVT prophylaxis
--- NOTE | 2017-08-27 16:48 | Cons- Cardiology ---
General Information and HPI Consulting Request Date of Consult: 08/27/17 Requested By: Isael VELAZCO,Tenzin History of Present Illness: Jose Antonio is an 82 year old female with history of hypertension and dyslipidemia who presented to the [facility] after suffering a transient episode of blurred vision in her left eye. She describes a sudden onset of blurry vision in the medial field of her left eye however she did not have a complete blackout of her vision. These symptoms lasted for approximately 15 minutes. She contacted her air conditioner installer helper Dr. Maldonado at [place] who recommended that she come to the ER to rule out a TIA. By the time she presented to the ER her symptoms had completely resolved. The patient is noted to have ventricular bigeminy and copious PVC's in general. She also has low voltage and a LBBB. An isolated low heart rate of 48bpm was also recoreded. At her baseline, this patient walks at a normal rate and can sometime walk quickly. She denies chest pain, pressure, tightness or lightheadedness but over the past couple months has noted occasional palpitations. Exertion will also elicit shortness of breath. Allergies/Medications Allergies: Coded Allergies: bee venom protein (honey bee) (Intermediate, SWELLING 08/26/17) Home Med List: Atorvastatin Calcium (Lipitor) 40 MG TABLET 1 TAB PO DAILY CHOL (Reported) Dorzolamide HCl/Timolol Maleat (Dorzolamide-Timolol Eye Drops) 22.3 MG-6.8 MG/ML DROPS 1 GTT OPH BID GLAUCOMA (Reported) Prednisolone Acetate 1 % DROPS.SUSP 1 GTT OPH 4 TIMES/DAY cataracts (Reported ) Valsartan (Diovan) 40 MG TABLET 1 TAB PO DAILY HTN (Reported) Review of Systems Review of Systems: A review of systems is unremarkable. Past History Travel History Traveled to [place] past 21 day No Medical History Blood Transfusion Hx: No Neurological: NONE EENT: cataracts Cardiovascular: hypertension, hyperlipidemia Respiratory: NONE Gastrointestinal: NONE Hepatic: NONE Renal: NONE Musculoskeletal: osteoarthritis, R ARM FX Psychiatric: NONE Endocrine: NONE Blood Disorders: NONE Cancer(s): NONE PRODUCT DEVELOPMENT COORDINATOR/Reproductive: NONE Surgical History Surgical History: cataract removal, corneal transplant, left eye Family History Relations & Conditions If Any: Relation not specified for: *No pertinent family history Psychosocial History Where Do You Live? Home Who Do You Live With? self Services at Home: None Primary Language: [place] Smoking Status: Never Smoked ETOH Use: occasional use Illicit Drug Use: denies illicit drug use Functional Ability ADLs Independent: dressing, eating, toileting, bathing. Ambulation: independent IADLs Independent: shopping, housework, finances, food prep, telephone, transportation , medication admin. Exam & Diagnostic Data Vital Signs and I&O Vital Signs Date Time Temp Pulse Resp B/P B/P Pulse O2 O2 Flow FiO2 Mean Ox Delivery Rate 08/27 1419 98.2 72 18 136/64 95 Room Air 08/27 0841 74 134/68 08/27 0655 97.7 74 20 136/66 96 Room Air 08/27 0224 98.1 72 18 132/60 95 Room Air 08/27 0211 98.0 74 20 132/70 96 Room Air 08/27 0027 72 20 152/70 97 Room Air 08/26 1923 66 20 158/68 97 08/26 1745 97 Room Air Room Air 08/26 1656 98.4 46 20 161/73 97 Room Air Intake & Output 08/27 1600 08/27 0800 08/27 0000 08/26 1600 08/26 0800 08/26 0000 Intake Total 750 Output Total Balance 750 Intake, Oral 750 Patient 154 lb 150 lb Weight Weight Bed scale Reported by Patient Measurement Method Physical Exam: General: WD/WN female in NAD; alert and oriented x 3 HEENT: NC/AT, PERRL, EOMI Neck: no JVD, no carotid bruit Heart: irregular with 2/6 systolic murmur Lungs: clear bilaterally Abdomen: soft, obese, NT, +ve bowel sounds Extremities: no edema Assessment/Plan Assessment/Plan * This patient had one recorded low heart rate that may be due to manipulation of her eye or perhaps an incorrect measurement in the setting of ventricular ectopy. It is difficult to know for sure and therefore it is reasonable to monitor her on telemetry for another 24 hours. If she is bradycardic it is certainly possible that her Timolol is contributing to this issue. Nevertheless, I would not stop this drug since symptomatic bradycardia has not been confirmed at this point in time. * I have a greater concern for the low voltage, RBBB and copious PVC's. I would obtain an echocardiogram and consideration will be given to a stress test. TFT's are normal. Obtain a chest X-ray. Continue Clopidogrel. Consult Acknowledgment - Thank you for your consult request.
--- NOTE | 2017-08-27 18:30 | ECHOCARDIOGRAM REPORT ---
SANJIV CHAVEZ Age: 82 : 1935 Gender: F Exam Date: 08/27/2017 12:16 Exam Location: [address] Ht (in): 62 Wt (lb): 150 BSA: 1.74 BP: 136 / 66 Ordering Physician: Good Metzger MD Referring Physician: Good Metzger MD Technologist: Sheila Jones [facility] Room Number: 184-1 Indications: Rhythm: Sinus Technical Quality: good FINDINGS Left Ventricle Normal left ventricular size, wall thickness and systolic function with no obvious regional wall motion abnormalities. Normal left ventricular diastolic filling pattern for age. The ejection fraction is visually estimated at 60%. Right Ventricle The right ventricle is mildly enlarged with normal function. Right Atrium The right atrium is normal in size. Left Atrium The left atrium is normal in size. The interatrial septum is intact. Mitral Valve The mitral valve is normal in structure and function. There is mild mitral regurgitation. Aortic Valve Structurally normal aortic valve without significant sclerosis or stenosis. There is no aortic regurgitation. Tricuspid Valve The tricuspid valve is normal in structure and function. There is mild tricuspid regurgitation. Pulmonary artery systolic pressure is normal. Pulmonic Valve Structurally normal pulmonic valve. There is no pulmonic regurgitation. Pericardium Normal pericardium without effusion. No pleural effusion. Great Vessels Normal aortic root dimension. The aortic arch and great vessels are well seen and are normal. CONCLUSIONS 1. Normal EF of 60%. 2. Mildly enlarged right ventricle. 3. Mild mitral regurgitation. 4. Mild tricuspid regurgitation. Anthony Villagran M.D. (Electronically Signed) Final Date: 27 Aug 2017 18:29 MEASUREMENTS (Male / Female) Normal Values 2D ECHO LV Diastolic Diameter PLAX 4.5 cm 4.2 - 5.9 / 3.9 - 5.3 cm LV Systolic Diameter PLAX 3.0 cm 2.1 - 4.0 cm LV Fractional Shortening PLAX 33.3 % 25 - 46 % LV Ejection Fraction 2D Teich 62.1 % IVS Diastolic Thickness 0.8 cm LVPW Diastolic Thickness 1.0 cm LV Relative Wall Thickness 0.4 LVOT Diameter 2.0 cm Aortic Root Diameter 2.8 cm LA Systolic Diameter LX 3.4 cm 3.0 - 4.0 / 2.7 - 3.8 cm LA Volume 43.0 cm 18 - 58 / 22 - 52 cm DOPPLER AV Peak Velocity 142.0 cm/s AV Peak Gradient 8.1 mmHg LVOT Peak Velocity 86.9 cm/s LVOT Peak Gradient 3.0 mmHg AV Area Cont Eq pk 1.9 cm Mitral E Point Velocity 56.8 cm/s Mitral A Point Velocity 71.6 cm/s Mitral E to A Ratio 0.8 MV Deceleration Time 356.0 ms TV Peak Velocity 274.5 cm/s PV Peak Velocity 84.2 cm/s PV Peak Gradient 2.8 mmHg LV E' Lateral Velocity 7.5 cm/s Mitral E to LV E' Lateral Ratio 7.6 LV E' Septal Velocity 7.3 cm/s Mitral E to LV E' Septal Ratio 7.8
[2017-08-27 22:38] VITALS: BP 128/68
--- NOTE | 2017-08-27 22:56 | RADIOLOGY REPORT ---
EXAMINATION: XR PORTABLE CHEST CLINICAL INFORMATION: Follow-up. TIA. COMPARISON: None TECHNIQUE: Portable frontal view of the chest was obtained. FINDINGS: Cardiac leads overlie the chest. The lungs are well expanded. There is no focal consolidation, edema, or effusion. No pneumothorax. The cardiomediastinal silhouette is within normal limits. No acute osseous abnormality. IMPRESSION: No acute pulmonary finding.
[2017-08-28 07:30] VITALS: BP 126/76
--- NOTE | 2017-08-28 09:11 | PN- Cardiology ---
Subjective Subjective: * No current complaints. * Her echocardiogram shows a normal EF but mild RV enlargement. Objective Vital Signs and I&Os Vital Signs Date Time Temp Pulse Resp B/P B/P Pulse O2 O2 Flow FiO2 Mean Ox Delivery Rate 08/28 0730 98.0 74 18 126/76 92 Room Air 08/27 2238 98.9 72 18 128/68 97 08/27 1419 98.2 72 18 136/64 95 Room Air Intake & Output 08/28 1600 08/28 0800 08/28 0000 08/27 1600 08/27 0800 08/27 0000 Intake Total 120 750 Output Total Balance 120 750 Intake, Oral 120 750 Patient 155 lb 154 lb 150 lb Weight Weight Bed scale Reported by Patient Measurement Method Physical Exam: General: WD/WN female in NAD; alert and oriented x 3 HEENT: NC/AT, PERRL, EOMI Neck: no JVD, no carotid bruit Heart: irregular with 2/6 systolic murmur Lungs: clear bilaterally Abdomen: soft, obese, NT, +ve bowel sounds Extremities: no edema Assessment/Plan Assessment/Plan * This patient had one recorded low heart rate that may be due to manipulation of her eye or perhaps an incorrect measurement in the setting of ventricular ectopy. No additional slow heart rates were recorded. If she is bradycardic it is certainly possible that her Timolol is contributing to this issue. Nevertheless, I would not stop this drug since symptomatic bradycardia has not been confirmed at this point in time. * I have a greater concern for the low voltage, RBBB and copious PVC's. Her echocardiogram did not show any pericardial effusion or decreased EF but she does have some RV enlargement. In consideration of some intermittent shortness of breath we will obtain a D-dimer and ABG. If either are abnormal then we will pursue a CT angiogram to assess for a PE. If no evidence of PE then the patietn can be discharged to home with follow up in the office in one week and we will pursue an outpatient stress test. Continue telemetry? Yes
[2017-08-28 10:00] VITALS: BP 120/60
[2017-08-28] MEDS ORDERED: PLAVIX75 M1 PO ×2 (12:43→18:08)
--- NOTE | 2017-08-28 12:58 | PN- Att Addend ---
Attending Addendum Attending Brief Note 82-year-old female with past medical history significant for hypertension, hyperlipidemia, status post bilateral cataract surgery with left corneal transplant and who follows up with Dr. Joseph at [facility] comes in for evaluation of a sudden onset of left eye visual field defect. Her working diagnosis is TIA as her symptoms resolve in 15 minutes. Her initial neuro exam was nonfocal. 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 Continue the patient on Plavix 75 mg and discontinue aspirin. Continue with losartan and atorvastatin 40 mg. Cardiology consult appreciated. There was a concerns for PE given her mild sob but d-dimers were negative. There has been no change made in her cardiac medications from the welding estimator and pt would be discharged today given patient is stable and would follow up with the welding estimator within one week for possible stress test.
[2017-08-28 15:03] VITALS: BP 128/66
--- NOTE | 2017-08-28 17:03 | CT SCAN REPORT ---
EXAMINATION: CT ANGIOGRAM CHEST CLINICAL INFORMATION: Increased work of breathing. Evaluate for pulmonary embolism. COMPARISON: Previous chest x-ray from yesterday TECHNIQUE: Multiple axial images were obtained through the chest after the administration of 95 mL of Optiray 320 intravenous contrast. Images were reviewed on a dedicated 3-D workstation. Sagittal, coronal reconstructions obtained. DLP: 306 mGy-cm FINDINGS: There is good opacification of the pulmonary arteries. There is no evidence of a pulmonary embolism. The heart is upper normal in size. There is no pericardial effusion. No coronary artery calcification is seen. The thoracic aorta is normal in caliber. There are no enlarged lymph nodes. There is no pleural effusion or pleural thickening. No chest wall mass or enlarged axillary lymph nodes are seen. Images through the upper abdomen are unremarkable. There are degenerative changes of the spine and mild curvature to the right. IMPRESSION: No evidence of pulmonary embolism.
== END 2017-08-28 18:25 | DRG 69 ==
LOC: ERH 16:36 → 1NO 23:53 → ERHI 23:53 → ENRESERV 08-27 01:42 → 1NO 08-27 02:13 → ENPENDDIS 08-28 12:46 → ENTRNSPT 08-28 18:11 → 1NO 08-28 18:25 → CMPTRNSPT 08-28 18:51
PROVIDERS: Internal Medicine Hematology & Oncology; Physician Assistant
DX: G45.9 Transient cerebral ischemic attack, unspecified (principal); I45.19 Other right bundle-branch block; E78.5 Hyperlipidemia, unspecified; I10 Essential (primary) hypertension; H53.40 Unspecified visual field defects; R00.8 Other abnormalities of heart beat; Z98.41 Cataract extraction status, right eye; Z98.42 Cataract extraction status, left eye; Z94.7 Corneal transplant status; Z91.030 Bee allergy status
CPT/HCPCS: 1NP; ERO; 36592; 71045; 82436; 93005; 93010; 93306; 96374; J2405; J3490